=== PATIENT | male | born 1965 | race Caucasian/White ===

== ENCOUNTER 2019-04-09 02:22 | Emergency (ER) | payer OTHER ==
[~2019-04-09] VITALS: Ht 177.8 cm; Wt 81.7 kg
[~2019-04-09 02:22] MED LIST: HYDACE5 PO
[2019-04-09] MEDS ORDERED: NARCAN4 MG (04:58)
== END 2019-04-09 05:19 | disposition home or self-care (01) ==
LOC: ER 02:22
DX: T40.1X1A Poisoning by heroin, accidental (unintentional), initial encounter (principal); Z88.5 Allergy status to narcotic agent
CPT/HCPCS: 99284